=== PATIENT | female | born 1980 | race Caucasian/White ===

== ENCOUNTER 2017-10-24 18:16 | Inpatient (IN) | payer SELFPAY ==
[~2017-10-24] VITALS: Ht 147.3 cm; Wt 49.1 kg
[2017-10-24 19:04] VITALS: BP 102/52; PULSE 99; TEMP 98.7
[2017-10-24] MEDS ORDERED: LIORESAL 1010 MG/TAB PO (19:40)
[2017-10-24] MEDS ORDERED: GLUCOTROL 5M5 MG/TAB PO (19:41)
[2017-10-24] MEDS ORDERED: LIPITOR 10MG10 MG PO (19:42)
[2017-10-24] MEDS ORDERED: SINGULAIR 110 MG/TAB PO (19:43)
[2017-10-24] MEDS ORDERED: ADULT MULTIVIT1 EACH PO (19:44)
[2017-10-24] MEDS ORDERED: PROAIR HFA0.09 MG/AC IH (19:45)
[2017-10-24] MEDS ORDERED: PERIDEX (CHLOR480 ML MM ×2 (20:08→20:09)
[2017-10-24 22:42] VITALS: BP 104/59; PULSE 132; TEMP 98.4
[2017-10-25] VITALS (7 sets, daily range): BP systolic 99–147; BP diastolic 48–86; PULSE 84–114; TEMP 98–98.9
[2017-10-25 00:45] LABS: GRANULAR CAST >12 /lpf; HYALINE CAST >12 /lpf; MUCOUS Present /lpf; PH 5 (5-8); URINE APPEARANCE Clear; URINE BACTERIA None Seen /hpf; URINE BILIRUBIN Negative (NEGATIVE); URINE BLOOD 1+ (NEGATIVE); URINE COLOR Yellow; URINE GLUCOSE Negative (NEGATIVE); URINE KETONE Trace (NEGATIVE); URINE LEUKOCYTE ESTERASE Negative (NEGATIVE); URINE NITRATE Negative (NEGATIVE); URINE PROTEIN(semi-quant) Negative (NEGATIVE); URINE RBC 0-2 /hpf; URINE UROBILINOGEN Negative (NEGATIVE)
[2017-10-25 00:47] LABS: COLLECTION METHOD CLEAN CATCH
[2017-10-25 09:09] LABS: BASO % 0.3 % (0.0-2.0); EOS # 0.3 (0.0-0.7); EOS % 2.5 % (0-4.0); GRAN # 7.5 (1.4-6.5); LYMPH # 2.4 (1.2-3.4); LYMPH % 21.4 % (20.0-51.0); MEAN CELL VOLUME 87 fl (80.0-100.0); MEAN CORPUSCULAR HGB CONC 31 g/dl (33.0-37.0); MEAN PLATELET VOLUME 9.6 fl (7.4-10.4); MONO # 1.1 (0.1-0.6); MONO % 9.4 % (1.7-9.3); PLATELET COUNT 271 K/mm3 (130-400); RED BLOOD COUNT 4.01 M/mm3 (4.10-5.30); REDCELL DISTRIBUTION WIDTH-CV 14.6 % (11.5-14.5)
[2017-10-25 09:21] LABS: HEMATOCRIT 34.8 % (37.0-47.0); HEMOGLOBIN 10.8 g/dl (12.5-16.0); MEAN CORPUSCULAR HEMOGLOBIN 27 pg (27.0-31.0)
[2017-10-25 09:32] LABS: CALCIUM 8.1 mg/dL (8.4-10.2); CREATININE, serum 0.88 mg/dL (0.52-1.25); POTASSIUM 3.7 mmol/L (3.4-5.0)
[2017-10-25 09:47] LABS: ERYTHROCYTE SEDIMENTATION RATE 18 mm/hr (0-20)
[2017-10-26 00:12] VITALS: BP 116/57; PULSE 86; TEMP 98.3
[2017-10-26 03:12] VITALS: BP 134/73; PULSE 87; TEMP 98.4
[2017-10-26 07:30] LABS: BASO % 0.5 % (0.0-2.0); EOS # 0.4 (0.0-0.7); EOS % 5.3 % (0-4.0); GRAN # 4.3 (1.4-6.5); GRAN % 52.6 % (42.2-75.2); LYMPH # 2.4 (1.2-3.4); LYMPH % 29.8 % (20.0-51.0); MEAN CELL VOLUME 86 fl (80.0-100.0); MEAN CORPUSCULAR HGB CONC 31 g/dl (33.0-37.0); MEAN PLATELET VOLUME 9.6 fl (7.4-10.4); MONO # 0.9 (0.1-0.6); MONO % 11.3 % (1.7-9.3); PLATELET COUNT 261 K/mm3 (130-400); RED BLOOD COUNT 4.08 M/mm3 (4.10-5.30); REDCELL DISTRIBUTION WIDTH-CV 14.4 % (11.5-14.5)
[2017-10-26 07:31] LABS: HEMATOCRIT 35.2 % (37.0-47.0); HEMOGLOBIN 10.9 g/dl (12.5-16.0); MEAN CORPUSCULAR HEMOGLOBIN 27 pg (27.0-31.0)
[2017-10-26 07:48] LABS: ALBUMIN 3.3 gm/dL (3.5-5.0); BILIRUBIN,TOTAL 0.1 mg/dL (0.0-1.0); CALCIUM 8.5 mg/dL (8.4-10.2); CREATININE, serum 0.74 mg/dL (0.52-1.25); MAGNESIUM 1.8 mg/dL (1.6-2.3); PHOSPHOROUS 3.2 mg/dL (2.5-4.5); POTASSIUM 3.8 mmol/L (3.4-5.0); TOTAL PROTEIN 6.7 gm/dL (6.4-8.2)
[2017-10-26 08:23] VITALS: BP 123/66; PULSE 72; TEMP 98.5
[2017-10-26 12:03] VITALS: BP 119/79; PULSE 79; TEMP 98.4
== END 2017-10-26 18:00 | disposition home or self-care (01) | DRG 872 ==
LOC: MEDICAL 18:16
PROVIDERS: Internal Medicine; Nurse Practitioner
DX: A41.9 Sepsis, unspecified organism (principal); A08.39 Other viral enteritis; N17.9 Acute kidney failure, unspecified; E87.2 Acidosis; K50.80 Crohn's disease of both small and large intestine without complications; A09 Infectious gastroenteritis and colitis, unspecified; E46 Unspecified protein-calorie malnutrition; R65.20 Severe sepsis without septic shock; Z93.2 Ileostomy status; E11.9 Type 2 diabetes mellitus without complications; J45.909 Unspecified asthma, uncomplicated; E86.0 Dehydration; N20.0 Calculus of kidney; Z68.22 Body mass index [BMI] 22.0-22.9, adult
CPT/HCPCS: 99222-AI; 99239; A9539; A9540; J0692; J1650; J3475; J7030